=== PATIENT | male | born 1965 | race African-American/Black ===

== ENCOUNTER 2020-08-26 10:46 | Emergency (ER) | payer SELFPAY ==
[~2020-08-26] VITALS: Ht 182.9 cm; Wt 81.0 kg
[2020-08-26] MEDS ORDERED: MORPHINE SULFATE 4 MG/ML CPJ (NOT FOR IM USE) IV ONE ×3 (11:15→17:30)
[2020-08-26 18:39] LABS: HEMOGLOBIN 13.9 g/dL (14.0-18.0); MEAN CORPUSCULAR HEMOGLOBIN 30.4 pg (28.0-32.0); MEAN CORPUSCULAR VOLUME 89.4 fL (80.0-94.0); PLATELET 236 x1000/uL (130-400); RED BLOOD CELL COUNT 4.58 mill/uL (4.7-6.1)
[2020-08-26 18:47] LABS: CHLORIDE 108 mEq/L (98-107)
[2020-08-26 19:05] LABS: PROTHROMBIN TIME 10.9 sec (9.6-11.0)
[2020-08-26 20:30] VITALS: BP 153/95
== END 2020-08-26 21:24 ==
LOC: ER 11:14
DX: M25.551 Pain in right hip (principal)
CPT/HCPCS: 36415; 73521; 73552; 73590; 80048; 85027; 85610; 86850; 86900; 86901; 96374; 96376; 99285; J2270; L1830; Z7610